=== PATIENT | male | born 1945 | race Caucasian/White ===

== ENCOUNTER → 2022-10-07 08:55 | Outpatient (BNVA) | payer MEDICARE, OTHER, SELFPAY | PROVIDERS: Visit Provider Podiatrist Foot & Ankle Surgery | DX: L84 Corns and callosities (principal); M20.41 Other hammer toe(s) (acquired), right foot; M20.42 Other hammer toe(s) (acquired), left foot; I73.9 Peripheral vascular disease, unspecified; M79.671 Pain in right foot | CPT/HCPCS: 11056; 99204 ==

== ENCOUNTER → 2022-11-06 07:49 | Outpatient (BNVA) | payer MEDICARE, OTHER, SELFPAY | PROVIDERS: Visit Provider Podiatrist Foot & Ankle Surgery | DX: I73.9 Peripheral vascular disease, unspecified (principal); L84 Corns and callosities; M20.41 Other hammer toe(s) (acquired), right foot; M20.42 Other hammer toe(s) (acquired), left foot | CPT/HCPCS: 11055 ==

== ENCOUNTER → 2022-12-06 07:52 | Outpatient (BNVA) | payer MEDICARE, OTHER, SELFPAY | PROVIDERS: Visit Provider Podiatrist Foot & Ankle Surgery | DX: L84 Corns and callosities (principal); M20.41 Other hammer toe(s) (acquired), right foot; M20.42 Other hammer toe(s) (acquired), left foot | CPT/HCPCS: 11055 ==

== ENCOUNTER → 2023-01-10 07:37 | Outpatient (BNVA) | payer MEDICARE, OTHER, SELFPAY | PROVIDERS: Visit Provider Podiatrist Foot & Ankle Surgery | DX: L84 Corns and callosities (principal); M20.41 Other hammer toe(s) (acquired), right foot; M20.42 Other hammer toe(s) (acquired), left foot | CPT/HCPCS: 99213 ==

== ENCOUNTER 2025-03-01 06:00 | Outpatient (RCR) | payer MEDICARE, OTHER, SELFPAY | END 2025-03-30 23:59 | disposition home or self-care (01) | LOC: TPT 06:00 | PROVIDERS: Visit Provider Family Medicine | DX: R53.1 Weakness (principal) | CPT/HCPCS: 97110; 97162 ==

== ENCOUNTER 2025-03-31 05:00 | Outpatient (RCR) | payer MEDICARE, OTHER, SELFPAY | END 2025-04-18 09:21 | disposition home or self-care (01) | LOC: TPT 05:00 | PROVIDERS: Visit Provider Family Medicine | DX: R53.81 Other malaise (principal); R53.1 Weakness | CPT/HCPCS: 97110 ==